=== PATIENT | female | born 1995 | race Caucasian/White ===

== ENCOUNTER 2016-09-25 20:49 | Emergency (ER) | payer SELFPAY ==
[~2016-09-25] VITALS: Ht 175.3 cm; Wt 65.0 kg
[~2016-09-25 20:49] MED LIST: BACT800T5 PO; CEPH-460 PO; CLOT1CRE6 TOPICAL
[2016-09-25 20:51] VITALS: BP 139/70; PULSE 64; RESP 18; TEMP 98.8; O2SAT 100
== END 2016-09-25 22:20 | disposition left against medical advice (07) ==
LOC: NED 20:49
DX: Z53.21 Procedure and treatment not carried out due to patient leaving prior to being seen by health care provider (principal)
CPT/HCPCS: 99281

== ENCOUNTER 2016-11-18 01:25 | Emergency (ER) | payer SELFPAY ==
[~2016-11-18] VITALS: Ht 160 cm; Wt 78.0 kg
[2016-11-18 01:27] VITALS: BP 112/71; PULSE 74; RESP 16; TEMP 98.9; O2SAT 99
== END 2016-11-18 03:55 | disposition left against medical advice (07) ==
LOC: NED 01:25
DX: R42 Dizziness and giddiness (principal); Z53.21 Procedure and treatment not carried out due to patient leaving prior to being seen by health care provider
CPT/HCPCS: 99281